=== PATIENT | male | born 1965 | race Caucasian/White ===

== ENCOUNTER 2020-03-01 16:11 | Emergency (ER) | payer OTHER ==
[2020-03-01 16:24] LABS: Mean Cell Volume 83.8 fl (78-100); Mean Corpuscular Hemoglobin 28.6 pg (26-32); Mean Corpuscular Hgb Concent. 34.1 g/dl (32-36); Mean Platelet Volume 10.6 fl (7.5-11.0); Platelet Count 207 K/mm3 (150-450); Red Blood Count 5.25 M/mm3 (4.1-5.6); Red Cell Distribution Width 12.9 % (11.5-14.0)
[2020-03-01 16:39] LABS: ALBUMIN 4.3 g/dL (3.5-5.0); ALKALINE PHOSPHATASE 102 U/L (38-126); BLOOD UREA NITROGEN 14 mg/dL (9-20); CHLORIDE 97 mmol/L (98-107); Calcium 8.8 mg/dL (8.4-10.2); Carbon Dioxide 28 mmol/L (22-30); Creatinine 1 1.11 mg/dL (0.66-1.25); Glucose 259 mg/dL (74-106); Potassium 4.2 mmol/L (3.5-5.1); SGOT/AST 23 U/L (17-59); SGPT/ALT 29 U/L (0-50); SODIUM 138 mmol/L (137-145); Total Protein 7.4 g/dL (6.3-8.2)
[2020-03-01] MEDS ORDERED: Sodium Chloride 0.9% 1000 ML 1,000 ML IV STA (16:44)
[2020-03-01] MEDS ORDERED: BABY ASPIRIN 81 MG CHEW PO ONE (16:44)
[2020-03-01] MEDS ORDERED: BABY ASPIRIN 81 MG CHEW ONE (16:47)
[2020-03-01] MEDS ORDERED: Sodium Chloride 0.9% 1000 ML 1,000 ML ONE (16:47)
--- NOTE | 2020-03-01 16:55 | ERPHSYRPT ---
- History of Present Illness Time Seen by Provider: 03/01/20 16:15 Source: patient Exam Limitations: no limitations Patient Subjective Stated Complaint: pt reports he mistakingly took two doses of his long-acting insulin today. pt reports taking 20 units of Basaglar at 0530 and then again at 1430 today. pt reports it was not intentional and he forgot he had administered the previous dose. pt states he realized approx 1500 what he had done and started to feel "weird". states he called his PCP and was advised to present to ED for evaluation. Triage Nursing Assessment: pt is aox3, ambulatory to trt room with no difficulties, pt speech is clear, appropriate, pupils perrl, afebrile, resps easy and non labored, cap refill < 3 seconds, pt skin pink warm dry. Physician History: Patient is here with accidental insulin overdose. Patient states that he took his morning insulin at about 5:30 AM. This is 24-hour long-acting insulin, Basaglar. Patient states he then fell back asleep. He slept until approximately 2:30 PM. At which point time he mistakenly repeated his Basaglar dose. He states that he is asymptomatic outside of feeling "weird". He has no current chest pain, shortness of breath, nausea, vomiting, fever, chills. He denies any falls, trauma, dizziness, weakness. He cannot further articulate his feelings of "weird". Timing/Duration: today Severity: moderate Modifying Factors: Improves With: medication Associated Symptoms: denies symptoms Allergies/Adverse Reactions: No Known Drug Allergies Allergy (Verified 03/01/20 16:35) Home Medications: Amlodipine Besylate 10 mg PO DAILY 03/01/20 [History] Aspirin EC 81 mg [Ecotrin 81 mg] 81 mg PO DAILY 03/01/20 [History] Escitalopram Oxalate [Lexapro] 20 mg PO DAILY 03/01/20 [History] Ezetimibe 10 mg [Zetia 10 MG] 10 mg PO DAILY 03/01/20 [History] Hydralazine HCl 50 mg PO BID 03/01/20 [History] Insulin Glargine,Hum.rec.anlog [Basaglar Kwikpen U-100] 20 unit SQ DAILY 03/01/20 [History] Omeprazole 40 mg PO DAILY 03/01/20 [History] PARoxetine HCL [Paroxetine HCl] 10 mg PO DAILY 03/01/20 [History] Pravastatin Sodium 80 mg PO DAILY 03/01/20 [History] Sitagliptin Phosphate [Januvia] 100 mg PO DAILY 03/01/20 [History] Zolpidem Tartrate [Zolpidem Tartrate ER] 12.5 mg PO HS 03/01/20 [History] Hx Tetanus, Diphtheria Vaccination/Date Given: Yes Hx Influenza Vaccination/Date Given: Yes Hx Pneumococcal Vaccination/Date Given: No Immunizations Up to Date: Yes Travel Risk - International Travel Have you traveled outside of the country in past 3 weeks: No - Coronavirus Screening Are you exhibiting any of the following symptoms?: No Close contact with a COVID-19 positive Pt in past 14-21 Days: No - Review of Systems Constitutional: No Fever, No Chills Eyes: No Symptoms Ears, Nose, & Throat: No Symptoms Respiratory: No Cough, No Dyspnea Cardiac: No Chest Pain, No Edema, No Syncope Abdominal/Gastrointestinal: No Abdominal Pain, No Nausea, No Vomiting, No Diarrhea Genitourinary Symptoms: No Dysuria Musculoskeletal: No Back Pain, No Neck Pain Skin: No Rash Neurological: No Dizziness, No Focal Weakness, No Sensory Changes Psychological: No Symptoms Endocrine: No Symptoms All Other Systems: Reviewed and Negative - Past Medical History Pertinent Past Medical History: Yes Neurological History: No Pertinent History ENT History: No Pertinent History Cardiac History: Hypertension Respiratory History: Asthma Endocrine Medical History: Diabetes Type II GI Medical History: No Pertinent History History: No Pertinent History Other Medical History: CELLULITIS L LEG - Past Surgical History Past Surgical History: Yes Neuro Surgical History: No Pertinent History Cardiac: No Pertinent History Respiratory: No Pertinent History Gastrointestinal: No Pertinent History Genitourinary: No Pertinent History Musculoskeletal: Joint Replacement Other Surgical History: LEFT HIP - Social History Smoking Status: Former smoker Exposure to second hand smoke: No Drug Use: none Patient Lives Alone: No - Nursing Vital Signs Nursing Vital Signs: Initial Vital Signs Temperature 98.2 F 03/01/20 16:13 Pulse Rate 50 L 03/01/20 16:13 Respiratory Rate 03/01/20 16:13 Blood Pressure 151/91 03/01/20 16:13 O2 Sat by Pulse Oximetry 97 03/01/20 16:13 Pain Scale Pain Intensity 0 - Physical Exam General Appearance: no apparent distress, alert Eye Exam: PERRL/EOMI, eyes nml inspection Ears, Nose, Throat Exam: normal ENT inspection, TMs normal, pharynx normal, moist mucous membranes Neck Exam: normal inspection, non-tender, supple, full range of motion Respiratory Exam: normal breath sounds, lungs clear, No respiratory distress Cardiovascular Exam: regular rate/rhythm, normal heart sounds, normal peripheral pulses Gastrointestinal/Abdomen Exam: soft, normal bowel sounds, No tenderness, No mass Back Exam: normal inspection, normal range of motion, No CVA tenderness, No vertebral tenderness Extremity Exam: normal inspection, normal range of motion, pelvis stable Neurologic Exam: alert, oriented x 3, cooperative, normal mood/affect, nml cerebellar function, nml station & gait, sensation nml, No motor deficits Skin Exam: normal color, warm, dry, No rash Lymphatic Exam: No adenopathy SpO2: 97 - Course Nursing assessment & vital signs reviewed: Yes EKG Interpreted by Me: RATE, Sinus Rhythm Ordered Tests: Active Orders 24 hr Category Date Time Status EKG-ER Only STAT Care 03/01/20 16:15 Active IV Insertion STAT Care 03/01/20 16:15 Active CBC W DIFF Stat Lab 03/01/20 16:15 Completed CMP Stat Lab 03/01/20 16:15 Completed Glucose Stat Lab 03/01/20 18:15 Completed Manual Differential NC Stat Lab 03/01/20 16:15 Completed Medication Summary Discontinued Medications Generic Name Dose Route Start Last Admin Trade Name Freq PRN Reason Stop Dose Admin Aspirin 324 mg 03/01/20 16:44 03/01/20 16:48 Baby Aspirin 81 Mg Chew PO 03/01/20 16:45 324 mg STAT ONE Administration Aspirin Confirm 03/01/20 16:47 Baby Aspirin 81 Mg Chew Administered 03/01/20 16:48 Dose 324 mg .ROUTE .STK-MED ONE Sodium Chloride 1,000 mls @ 999 mls/hr 03/01/20 16:44 03/01/20 18:03 Sodium Chloride 0.9% 1000 Ml IV 03/01/20 17:44 Infused .Q1H1M STA Infusion Sodium Chloride Confirm 03/01/20 16:47 Sodium Chloride 0.9% 1000 Ml Administered 03/01/20 16:48 Dose 1,000 mls @ ud .ROUTE .STK-MED ONE Lab/Rad Data: Laboratory Result Diagrams 03/01/20 16:15 03/01/20 16:15 Laboratory Results 03/01/20 03/01/20 03/01/20 Range/Units 18:15 16:15 16:15 WBC 7.0 (4.0-10.5) K/mm3 RBC 5.25 (4.1-5.6) M/mm3 Hgb 15.0 (12.5-18.0) gm/dl Hct 44.0 (42-50) % MCV 83.8 (78-100) fl MCH 28.6 (26-32) pg MCHC 34.1 (32-36) g/dl RDW 12.9 (11.5-14.0) % Plt Count 207 (150-450) K/mm3 MPV 10.6 (7.5-11.0) fl Sodium 138 (137-145) mmol/L Potassium 4.2 (3.5-5.1) mmol/L Chloride 97 L (98-107) mmol/L Carbon Dioxide 28 (22-30) mmol/L Anion Gap 17.0 H (5-15) MEQ/L BUN 14 (9-20) mg/dL Creatinine 1.11 (0.66-1.25) mg/dL Estimated GFR > 60.0 ML/MIN Glucose 209 H 259 H (74-106) mg/dL Calcium 8.8 (8.4-10.2) mg/dL Total Bilirubin 1.30 (0.2-1.3) mg/dL AST 23 (17-59) U/L ALT 29 (0-50) U/L Alkaline Phosphatase 102 (38-126) U/L Serum Total Protein 7.4 (6.3-8.2) g/dL Albumin 4.3 (3.5-5.0) g/dL - Progress Progress: improved Progress Note: 03/01/20 16:54 We will obtain basic labs, fluids, EKG. EKG- No STEMI blood glucose is 259 Observe and repeat glucose check 03/01/20 18:33 Patient feeling improved. He was observed for 2 hours. Able to eat and drink without difficulty. Repeat glucose was 209. I do believe he is safe to go home at this point time. Although, the half-life of his insulin medication is 24 hours. Encouraged him to continue to eat and drink, closely monitor home blood glucose. He will need to return here for any new or changing symptoms. Patient states he will have somebody stay at his house with him tonight. Counseled pt/family regarding: lab results, diagnosis, need for follow-up - Departure Departure Disposition: Home Clinical Impression: Overdose of insulin Condition: Stable Critical Care Time: No Referrals: CHEPE AZEVEDO [Primary Care Provider] -
[2020-03-01 18:03] VITALS: BP 144/86; PULSE 67
[2020-03-01 18:34] VITALS: O2SAT 97
[2020-03-01 20:51] LABS: Basophil 2 % (0.0-1.0); Lymphocytes 22 % (24-44); Monocyte 5 % (0.0-12.0); Neutrophils 71 % (36.-66.); Platelet Estimate NORMAL (NORMAL); Total Cells Counted 100
== END 2020-03-01 18:44 | disposition home or self-care (01) ==
LOC: ED 16:11
DX: T38.3X1A Poisoning by insulin and oral hypoglycemic [antidiabetic] drugs, accidental (unintentional), initial encounter (principal); Z79.899 Other long term (current) drug therapy; I10 Essential (primary) hypertension; E11.9 Type 2 diabetes mellitus without complications
CPT/HCPCS: 36000; 36415; 80053; 82947; 82962; 85025; 93005; 96360; 99284; A9270-GY

== ENCOUNTER 2021-11-14 16:58 | Emergency (ER) | payer OTHER ==
[2021-11-14] MEDS ORDERED: Sodium Chloride 0.9% 1000 ML 1,000 ML IV STA ×2 (17:03→21:01)
--- NOTE | 2021-11-14 18:11 | ERPHSYRPT ---
- History of Present Illness Source: family, EMS Exam Limitations: clinical condition Patient Subjective Stated Complaint: Weakness Triage Nursing Assessment: Patient brought into ED via EMS and transferred to bed with assist of 4. Patient Alert to self only. EMS reports patient's son called 911 due to checking on his dad and noted he has been in his recliner for 2 days and he didn't believe he had gotten up. Patient noted to have saturated brief on with urine and stool. Patient has dried mucus in walters. Patient denies pain or discomfort. Patient very poor hisorian. Timing/Duration: other (Uncertain how long he has been in an altered mental state and how long he sat in the chair.) Severity: severe Hx Tetanus, Diphtheria Vaccination/Date Given: Yes Hx Influenza Vaccination/Date Given: (unknown) Hx Pneumococcal Vaccination/Date Given: No <ANGELLA PRESCOTT - Last Filed: 11/14/21 18:48> <ALBERTO BLANCHARD - Last Filed: 11/14/21 21:03> - History of Present Illness Time Seen by Provider: 11/14/21 17:45 Physician History: Patient is a 56-year-old male who according to his family is normally active and drives who was last seen Wednesday by his son today when he returned to the area and went to check on his father he found him sitting in a chair for an obvious period of time with soiling himself and urine output he seemed to have some general weakness and some muscle tremors. He does have a history of a CVA and he has had with this episode some difficulty speaking and confusion. Patient is unaware unable otherwise to give history. (ANGELLA PRESCOTT) Allergies/Adverse Reactions: No Known Drug Allergies Allergy (Verified 03/01/20 16:35) Home Medications: Amlodipine Besylate 10 mg PO DAILY 03/01/20 [History] Aspirin EC 81 mg [Ecotrin 81 mg] 81 mg PO DAILY 03/01/20 [History] Escitalopram Oxalate [Lexapro] 20 mg PO DAILY 03/01/20 [History] Ezetimibe 10 mg [Zetia 10 MG] 10 mg PO DAILY 03/01/20 [History] Hydralazine HCl 50 mg PO BID 03/01/20 [History] Insulin Glargine,Hum.rec.anlog [Basaglar Kwikpen U-100] 20 unit SQ DAILY 03/01/20 [History] Omeprazole 40 mg PO DAILY 03/01/20 [History] PARoxetine HCL [Paroxetine HCl] 10 mg PO DAILY 03/01/20 [History] Pravastatin Sodium 80 mg PO DAILY 03/01/20 [History] Sitagliptin Phosphate [Januvia] 100 mg PO DAILY 03/01/20 [History] Zolpidem Tartrate [Zolpidem Tartrate ER] 12.5 mg PO HS 03/01/20 [History] Travel Risk - International Travel Have you traveled outside of the country in past 3 weeks: No - Coronavirus Screening Are you exhibiting any of the following symptoms?: No Close contact with a COVID-19 positive Pt in past 14-21 Days: No - Vaccine Status Have you recieved a Covid-19 vaccination: No Dyer Assistant: Unknown - Vaccination Dates Dates if Unknown: unknown <ANGELLA PRESCOTT - Last Filed: 11/14/21 18:48> - Review of Systems All Other Systems: Unable due to condition <ANGELLA PRESCOTT - Last Filed: 11/14/21 18:48> - Past Medical History Pertinent Past Medical History: Yes Neurological History: No Pertinent History ENT History: No Pertinent History Cardiac History: Hypertension Respiratory History: Asthma Endocrine Medical History: Diabetes Type II GI Medical History: No Pertinent History History: No Pertinent History Other Medical History: CELLULITIS L LEG. Poor historian - Past Surgical History Past Surgical History: Yes Neuro Surgical History: No Pertinent History Cardiac: No Pertinent History Respiratory: No Pertinent History Gastrointestinal: No Pertinent History Genitourinary: No Pertinent History Musculoskeletal: Joint Replacement Other Surgical History: LEFT HIP. Poor historian - Social History Smoking Status: Former smoker Exposure to second hand smoke: No Drug Use: none Patient Lives Alone: Yes <ANGELLA PRESCOTT - Last Filed: 11/14/21 18:48> - Physical Exam General Appearance: obese, other (Unkempt soiled depends) Eye Exam: PERRL/EOMI, other (Does not seem to track appropriately) Ears, Nose, Throat Exam: normal ENT inspection Neck Exam: normal inspection, non-tender Respiratory Exam: normal breath sounds, lungs clear, No respiratory distress Cardiovascular Exam: regular rate/rhythm, normal heart sounds Gastrointestinal/Abdomen Exam: tenderness, distention Male Genitalia Exam: normal genitalia Back Exam: normal inspection, decreased range of motion Extremity Exam: limited range of motion, other (Tremors) Neurologic Exam: alert, disoriented, confusion Skin Exam: warm, dry SpO2 Interpretation: hypoxic, O2 applied (3 L applied) SpO2: 93 O2 Delivery: Nasal Cannula <ANGELLA PRESCOTT - Last Filed: 11/14/21 18:48> - Nursing Vital Signs Nursing Vital Signs: Initial Vital Signs Temperature 98.2 F 11/14/21 17:40 Pulse Rate 87 11/14/21 17:40 Respiratory Rate 19 11/14/21 17:40 Blood Pressure 106/65 11/14/21 17:40 O2 Sat by Pulse Oximetry 93 L 11/14/21 17:40 Pain Scale Pain Intensity 0 - Course Nursing assessment & vital signs reviewed: Yes EKG Interpreted by Me: RATE (87), Sinus Rhythm, Left Bundle Branch Block, Non- specific ST Changes, Other (Tall peaked T waves consistent with hyperkalemia) - Radiology Exams Chest X-ray Interpretation: Interpreted by me (Negative except small volumes) - CT Exams Head CT Interpretation: Tele-radiologist Report (No acute ischemic lesions are noted) <BONGANGELLA DONALD - Last Filed: 11/14/21 18:48> Ordered Tests: Active Orders 24 hr Category Date Time Status [place] Drill Operator STAT Care 11/14/21 17:01 Active EKG-ER Only STAT Care 11/14/21 17:00 Active Hawkins [Catheter-Nemaha Hawkins] STAT Care 11/14/21 17:13 Active IV Insertion STAT Care 11/14/21 17:00 Active NPO (ED) STAT Care 11/14/21 17:00 Active CHEST 1 VIEW (PORTABLE) Stat Exams 11/14/21 17:01 Completed HEAD WITHOUT CONTRAST [CT] Stat Exams 11/14/21 17:01 Completed ABG [ARTERIAL BLOOD GASES] Stat Lab 11/14/21 20:46 Completed AMYLASE Stat Lab 11/14/21 18:00 Completed BLOOD CULTURE Stat Lab 11/14/21 18:05 Received CBC W DIFF Stat Lab 11/14/21 18:00 Completed CK-Creatinine Phosphokinase Stat Lab 11/14/21 18:00 Completed CMP Stat Lab 11/14/21 17:20 Completed CULTURE,URINE Stat Lab 11/14/21 17:13 Ordered D-DIMER QUANTITATIVE Stat Lab 11/14/21 18:00 Completed ETHYL ALCOHOL Stat Lab 11/14/21 18:00 Completed Glucose Stat Lab 11/14/21 18:00 Completed LIPASE Stat Lab 11/14/21 18:00 Completed Lactic Acid Stat Lab 11/14/21 17:03 Completed MAGNESIUM Stat Lab 11/14/21 18:00 Completed Manual Differential NC Stat Lab 11/14/21 18:00 Completed NT PRO BNP Stat Lab 11/14/21 18:00 Completed PTT Stat Lab 11/14/21 18:00 Completed TROPONIN Q3H Lab 11/14/21 18:00 Completed TROPONIN Q3H Lab 11/14/21 20:15 Ordered TROPONIN Q3H Lab 11/14/21 23:15 Ordered TROPONIN Q3H Lab 11/15/21 02:15 Ordered TROPONIN Q3H Lab 11/15/21 05:15 Ordered UA W/RFX UR CULTURE Stat Lab 11/14/21 17:13 Completed Urine Triage Profile Stat Lab 11/14/21 17:13 Completed Medication Summary Discontinued Medications Generic Name Dose Route Start Last Admin Trade Name Freq PRN Reason Stop Dose Admin Calcium Gluconate 1,000 mg 11/14/21 18:36 11/14/21 19:03 Calcium Gluconate 1000 Mg/10 Ml Vial IV 11/14/21 18:37 1,000 mg STAT ONE Administration Calcium Gluconate Confirm 11/14/21 18:57 Calcium Gluconate 1000 Mg/10 Ml Vial Administered 11/14/21 18:58 Dose 1,000 mg IV .STK-MED ONE Dextrose 50 ml 11/14/21 18:36 11/14/21 19:03 Dextrose 50%-Water 50 Ml Abboject IV 11/14/21 18:37 50 ml STAT ONE Administration Dextrose Confirm 11/14/21 18:59 Dextrose 50%-Water 50 Ml Abboject Administered 11/14/21 19:00 Dose 50 ml IV .STK-MED ONE Sodium Chloride 1,000 mls @ 999 mls/hr 11/14/21 17:03 11/14/21 18:38 Sodium Chloride 0.9% 1000 Ml IV 11/14/21 18:03 999 mls/hr .Q1H1M STA Administration Sodium Chloride Confirm 11/14/21 18:37 Sodium Chloride 0.9% 1000 Ml Administered 11/14/21 18:38 Dose 1,000 mls @ ud .ROUTE .STK-MED ONE Sodium Chloride Confirm 11/14/21 20:52 Sodium Chloride 0.9% 1000 Ml Administered 11/14/21 20:53 Dose 1,000 mls @ ud .ROUTE .STK-MED ONE Insulin Human Regular 10 unit 11/14/21 18:36 11/14/21 19:01 Insulin Regular, Human 1 Unit IV 11/14/21 18:37 10 unit STAT ONE Administration Insulin Human Regular Confirm 11/14/21 18:59 Insulin Regular, Human 1 Unit Administered 11/14/21 19:00 Dose 10 unit .ROUTE .STK-MED ONE Patiromer Confirm 11/14/21 20:50 Patiromer Calcium Sorbitex 8.4 Gm Powd.Pack Administered 11/14/21 20:51 Dose 8.4 gm PO .STK-MED ONE Patiromer 8.4 gm 11/14/21 20:53 Patiromer Calcium Sorbitex 8.4 Gm Powd.Pack PO 11/14/21 20:54 STAT STA Sodium Bicarbonate 50 meq 11/14/21 18:36 11/14/21 19:03 Sodium Bicarbonate 1 Meq/Ml 50ml Syringe IV 11/14/21 18:37 50 meq STAT ONE Administration Sodium Bicarbonate Confirm 11/14/21 18:59 Sodium Bicarbonate 1 Meq/Ml 50ml Syringe Administered 11/14/21 19:00 Dose 50 meq IV .STK-MED ONE Lab/Rad Data: Laboratory Result Diagrams 11/14/21 18:00 11/14/21 17:20 Laboratory Results 11/14/21 11/14/21 11/14/21 Range/Units 20:46 18:40 18:00 WBC (4.0-10.5) K/mm3 RBC (4.1-5.6) M/mm3 Hgb (12.5-18.0) gm/dl Hct (42-50) % MCV (78-100) fl MCH (26-32) pg MCHC (32-36) g/dl RDW (11.5-14.0) % Plt Count (150-450) K/mm3 MPV (7.5-11.0) fl Segmented Neutrophils (36.-66.) % Band Neutrophils (0.0-2.0) % Lymphocytes (Manual) (24-44) % Monocytes (Manual) (0.0-12.0) % Platelet Estimate (NORMAL) RBC Morphology Microcytosis APTT (25.1-36.5) SECONDS D-Dimer (215-500) ng/mL Puncture Site LEFT BRACHIAL pCO2 19 L* (35-45) mmHg pO2 137 H* (75-100) mmHg Base Excess -22.9 L (-2.0-2.0) O2 Saturation 97.9 (94-100) g/dF ABG pH 7.07 L* (7.35-7.45) ABG HCO3 5.5 L* (22-28) ABG O2 Sat (Measured) 98.6 (95-100) % Wing Test NOT APPLICABLE A-a Gradient 67 a/A Ratio 0.67 Hemoglobin 9.2 Carboxyhemoglobin 0.5 (0.0-6.9) % THgb Methemoglobin 0.2 L (1.4-1.5) % Temperature 37.0 C POC O2 Flow Rate 32 % Sodium (137-145) mmol/L Potassium 6.3 H* (3.5-5.1) mmol/L Chloride (98-107) mmol/L Carbon Dioxide (22-30) mmol/L BUN (9-20) mg/dL Creatinine (0.66-1.25) mg/dL Estimated GFR ML/MIN Glucose (74-106) mg/dL Lactic Acid (0.4-2.0) Calcium (8.4-10.2) mg/dL Magnesium (1.6-2.3) mg/dL Total Bilirubin (0.2-1.3) mg/dL AST (17-59) U/L ALT (0-50) U/L Alkaline Phosphatase (38-126) U/L Ammonia < 9 L (9-30) umol/L Creatine Kinase (55-170) U/L Troponin I 0.040 H* (0.000-0.034) ng/mL NT-Pro-B Natriuret Pep (0-900) pg/mL Serum Total Protein (6.3-8.2) g/dL Albumin (3.5-5.0) g/dL Amylase (30-110) U/L Lipase (23-300) U/L Urine Color (YELLOW) Urine Appearance (CLEAR) Urine pH (5-6) Ur Specific Recluse (1.005-1.025) Urine Protein (Negative) Urine Ketones (NEGATIVE) Urine Blood (0-5) Dereck/ul Urine Nitrite (NEGATIVE) Urine Bilirubin (NEGATIVE) Urine Urobilinogen (0-1) mg/dL Ur Leukocyte Esterase (NEGATIVE) Urine WBC (Auto) (0-5) /HPF Urine RBC (Auto) (0-2) /HPF U Epithel Cells (Auto) (FEW) /HPF Urine Bacteria (Auto) (NEGATIVE) /HPF Urine Sperm (Auto) (NEGATIVE) /HPF Urine Culture Reflexed (NO) Urine Glucose (NEGATIVE) mg/dL Urine Opiates Level (NEGATIVE) Ur Methadone (NEGATIVE) Urine Barbiturates (NEGATIVE) Ur Phencyclidine (PCP) (NEGATIVE) Urine Amphetamine (NEGATIVE) U Benzodiazepine Level (NEGATIVE) Urine Cocaine (NEGATIVE) Urine Marijuana (THC) (NEGATIVE) Ethyl Alcohol (0-10) mg/dL 11/14/21 11/14/21 11/14/21 Range/Units 18:00 18:00 18:00 WBC (4.0-10.5) K/mm3 RBC (4.1-5.6) M/mm3 Hgb (12.5-18.0) gm/dl Hct (42-50) % MCV (78-100) fl MCH (26-32) pg MCHC (32-36) g/dl RDW (11.5-14.0) % Plt Count (150-450) K/mm3 MPV (7.5-11.0) fl Segmented Neutrophils (36.-66.) % Band Neutrophils (0.0-2.0) % Lymphocytes (Manual) (24-44) % Monocytes (Manual) (0.0-12.0) % Platelet Estimate (NORMAL) RBC Morphology Microcytosis APTT 37.5 H (25.1-36.5) SECONDS D-Dimer 4116 H* (215-500) ng/mL Puncture Site pCO2 (35-45) mmHg pO2 (75-100) mmHg Base Excess (-2.0-2.0) O2 Saturation (94-100) g/dF ABG pH (7.35-7.45) ABG HCO3 (22-28) ABG O2 Sat (Measured) (95-100) % Wing Test A-a Gradient a/A Ratio Hemoglobin Carboxyhemoglobin (0.0-6.9) % THgb Methemoglobin (1.4-1.5) % Temperature C POC O2 Flow Rate % Sodium (137-145) mmol/L Potassium (3.5-5.1) mmol/L Chloride (98-107) mmol/L Carbon Dioxide (22-30) mmol/L BUN (9-20) mg/dL Creatinine (0.66-1.25) mg/dL Estimated GFR ML/MIN Glucose 106 (74-106) mg/dL Lactic Acid (0.4-2.0) Calcium (8.4-10.2) mg/dL Magnesium 1.6 (1.6-2.3) mg/dL Total Bilirubin (0.2-1.3) mg/dL AST (17-59) U/L ALT (0-50) U/L Alkaline Phosphatase (38-126) U/L Ammonia (9-30) umol/L Creatine Kinase 1103 H (55-170) U/L Troponin I (0.000-0.034) ng/mL NT-Pro-B Natriuret Pep 248 (0-900) pg/mL Serum Total Protein (6.3-8.2) g/dL Albumin (3.5-5.0) g/dL Amylase 317 H (30-110) U/L Lipase 2922 H (23-300) U/L Urine Color (YELLOW) Urine Appearance (CLEAR) Urine pH (5-6) Ur Specific Recluse (1.005-1.025) Urine Protein (Negative) Urine Ketones (NEGATIVE) Urine Blood (0-5) Dereck/ul Urine Nitrite (NEGATIVE) Urine Bilirubin (NEGATIVE) Urine Urobilinogen (0-1) mg/dL Ur Leukocyte Esterase (NEGATIVE) Urine WBC (Auto) (0-5) /HPF Urine RBC (Auto) (0-2) /HPF U Epithel Cells (Auto) (FEW) /HPF Urine Bacteria (Auto) (NEGATIVE) /HPF Urine Sperm (Auto) (NEGATIVE) /HPF Urine Culture Reflexed (NO) Urine Glucose (NEGATIVE) mg/dL Urine Opiates Level (NEGATIVE) Ur Methadone (NEGATIVE) Urine Barbiturates (NEGATIVE) Ur Phencyclidine (PCP) (NEGATIVE) Urine Amphetamine (NEGATIVE) U Benzodiazepine Level (NEGATIVE) Urine Cocaine (NEGATIVE) Urine Marijuana (THC) (NEGATIVE) Ethyl Alcohol < 10 (0-10) mg/dL 11/14/21 11/14/21 11/14/21 Range/Units 18:00 17:20 17:13 WBC 14.0 H (4.0-10.5) K/mm3 RBC 3.35 L (4.1-5.6) M/mm3 Hgb 9.7 L (12.5-18.0) gm/dl Hct 30.1 L (42-50) % MCV 89.9 (78-100) fl MCH 29.0 (26-32) pg MCHC 32.2 (32-36) g/dl RDW 14.9 H (11.5-14.0) % Plt Count 261 (150-450) K/mm3 MPV 10.8 (7.5-11.0) fl Segmented Neutrophils 88 H (36.-66.) % Band Neutrophils 1 (0.0-2.0) % Lymphocytes (Manual) 6 L (24-44) % Monocytes (Manual) 5 (0.0-12.0) % Platelet Estimate NORMAL (NORMAL) RBC Morphology ABNORMAL Microcytosis 1+ APTT (25.1-36.5) SECONDS D-Dimer (215-500) ng/mL Puncture Site pCO2 (35-45) mmHg pO2 (75-100) mmHg Base Excess (-2.0-2.0) O2 Saturation (94-100) g/dF ABG pH (7.35-7.45) ABG HCO3 (22-28) ABG O2 Sat (Measured) (95-100) % Wing Test A-a Gradient a/A Ratio Hemoglobin Carboxyhemoglobin (0.0-6.9) % THgb Methemoglobin (1.4-1.5) % Temperature C POC O2 Flow Rate % Sodium 142 (137-145) mmol/L Potassium 8.1 H* (3.5-5.1) mmol/L Chloride 111 H (98-107) mmol/L Carbon Dioxide < 5 L* (22-30) mmol/L BUN 273 H (9-20) mg/dL Creatinine 28.40 H (0.66-1.25) mg/dL Estimated GFR 1.7 ML/MIN Glucose 105 (74-106) mg/dL Lactic Acid (0.4-2.0) Calcium 7.4 L (8.4-10.2) mg/dL Magnesium (1.6-2.3) mg/dL Total Bilirubin 0.50 (0.2-1.3) mg/dL AST 35 (17-59) U/L ALT 19 (0-50) U/L Alkaline Phosphatase 112 (38-126) U/L Ammonia (9-30) umol/L Creatine Kinase (55-170) U/L Troponin I (0.000-0.034) ng/mL NT-Pro-B Natriuret Pep (0-900) pg/mL Serum Total Protein 6.3 (6.3-8.2) g/dL Albumin 3.7 (3.5-5.0) g/dL Amylase (30-110) U/L Lipase (23-300) U/L Urine Color (YELLOW) Urine Appearance (CLEAR) Urine pH (5-6) Ur Specific Recluse (1.005-1.025) Urine Protein (Negative) Urine Ketones (NEGATIVE) Urine Blood (0-5) Dereck/ul Urine Nitrite (NEGATIVE) Urine Bilirubin (NEGATIVE) Urine Urobilinogen (0-1) mg/dL Ur Leukocyte Esterase (NEGATIVE) Urine WBC (Auto) (0-5) /HPF Urine RBC (Auto) (0-2) /HPF U Epithel Cells (Auto) (FEW) /HPF Urine Bacteria (Auto) (NEGATIVE) /HPF Urine Sperm (Auto) (NEGATIVE) /HPF Urine Culture Reflexed (NO) Urine Glucose (NEGATIVE) mg/dL Urine Opiates Level NEGATIVE (NEGATIVE) Ur Methadone NEGATIVE (NEGATIVE) Urine Barbiturates NEGATIVE (NEGATIVE) Ur Phencyclidine (PCP) NEGATIVE (NEGATIVE) Urine Amphetamine NEGATIVE (NEGATIVE) U Benzodiazepine Level NEGATIVE (NEGATIVE) Urine Cocaine NEGATIVE (NEGATIVE) Urine Marijuana (THC) NEGATIVE (NEGATIVE) Ethyl Alcohol (0-10) mg/dL 11/14/21 11/14/21 Range/Units 17:13 17:03 WBC (4.0-10.5) K/mm3 RBC (4.1-5.6) M/mm3 Hgb (12.5-18.0) gm/dl Hct (42-50) % MCV (78-100) fl MCH (26-32) pg MCHC (32-36) g/dl RDW (11.5-14.0) % Plt Count (150-450) K/mm3 MPV (7.5-11.0) fl Segmented Neutrophils (36.-66.) % Band Neutrophils (0.0-2.0) % Lymphocytes (Manual) (24-44) % Monocytes (Manual) (0.0-12.0) % Platelet Estimate (NORMAL) RBC Morphology Microcytosis APTT (25.1-36.5) SECONDS D-Dimer (215-500) ng/mL Puncture Site pCO2 (35-45) mmHg pO2 (75-100) mmHg Base Excess (-2.0-2.0) O2 Saturation (94-100) g/dF ABG pH (7.35-7.45) ABG HCO3 (22-28) ABG O2 Sat (Measured) (95-100) % Wing Test A-a Gradient a/A Ratio Hemoglobin Carboxyhemoglobin (0.0-6.9) % THgb Methemoglobin (1.4-1.5) % Temperature C POC O2 Flow Rate % Sodium (137-145) mmol/L Potassium (3.5-5.1) mmol/L Chloride (98-107) mmol/L Carbon Dioxide (22-30) mmol/L BUN (9-20) mg/dL Creatinine (0.66-1.25) mg/dL Estimated GFR ML/MIN Glucose (74-106) mg/dL Lactic Acid 0.4 (0.4-2.0) Calcium (8.4-10.2) mg/dL Magnesium (1.6-2.3) mg/dL Total Bilirubin (0.2-1.3) mg/dL AST (17-59) U/L ALT (0-50) U/L Alkaline Phosphatase (38-126) U/L Ammonia (9-30) umol/L Creatine Kinase (55-170) U/L Troponin I (0.000-0.034) ng/mL NT-Pro-B Natriuret Pep (0-900) pg/mL Serum Total Protein (6.3-8.2) g/dL Albumin (3.5-5.0) g/dL Amylase (30-110) U/L Lipase (23-300) U/L Urine Color YELLOW (YELLOW) Urine Appearance CLEAR (CLEAR) Urine pH 5.0 (5-6) Ur Specific Recluse 1.010 (1.005-1.025) Urine Protein NEGATIVE (Negative) Urine Ketones NEGATIVE (NEGATIVE) Urine Blood NEGATIVE (0-5) Dereck/ul Urine Nitrite NEGATIVE (NEGATIVE) Urine Bilirubin NEGATIVE (NEGATIVE) Urine Urobilinogen NEGATIVE (0-1) mg/dL Ur Leukocyte Esterase NEGATIVE (NEGATIVE) Urine WBC (Auto) 0-2 (0-5) /HPF Urine RBC (Auto) 0-2 (0-2) /HPF U Epithel Cells (Auto) NONE (FEW) /HPF Urine Bacteria (Auto) NONE SEEN (NEGATIVE) /HPF Urine Sperm (Auto) PRESENT (NEGATIVE) /HPF Urine Culture Reflexed NO (NO) Urine Glucose 150 (NEGATIVE) mg/dL Urine Opiates Level (NEGATIVE) Ur Methadone (NEGATIVE) Urine Barbiturates (NEGATIVE) Ur Phencyclidine (PCP) (NEGATIVE) Urine Amphetamine (NEGATIVE) U Benzodiazepine Level (NEGATIVE) Urine Cocaine (NEGATIVE) Urine Marijuana (THC) (NEGATIVE) Ethyl Alcohol (0-10) mg/dL - Progress Progress: unchanged Will see patient in: hospital (full admit) <ANGELLA PRESCOTT - Last Filed: 11/14/21 18:48> - Progress Discussed with Dr.: Other Will see patient in: ED Counseled pt/family regarding: lab results, diagnosis, need for follow-up, rad results <ALBERTO BLANCHARD - Last Filed: 11/14/21 21:03> - Progress Progress Note: 11/14/21 20:56 Patient is checked out to me at shift change from Dr. Prescott with pending work- up. Patient presented with altered mental status. CT head is negative for any acute findings. Patient is awake and alert but not fully oriented on my evaluation. Not in any distress. Work-up showed white count of 14 and chemistries with acute renal failure creatinine of 28.4 and BUN of 273 with elevated CK level in the 1100s, and potassium of 8.1. He is given hyperkalemia acute treatment with calcium/bicarb/dextrose/insulin/albuterol and Velt[place]. Also has elevated lipase and amylase and mildly elevated troponin without any acute ST elevations. Is given another bolus of fluid and bicarb as he has a bicarb of less than 5 on chemistries. I believe patient needs emergent dialysi s. Has elevated D-dimer but cannot obtain CTA. Discussed with Dr. Baez who recommended continuous albuterol nebs and patient is accepted for transfer at [facility]. (ALBERTO BLANCHARD) - Departure Departure Disposition: In-patient Admission Critical Care Time: Yes Critical Care Time(excluding separately billable procedures): Critical 30-74 mins (50) <ANGELLA PRESCOTT - Last Filed: 11/14/21 18:48> - Departure Departure Disposition: Transfer <ALBERTO BLANCHARD - Last Filed: 11/14/21 21:03> - Departure Clinical Impression: Hyperkalemia, Rhabdomyolysis, Elevated d-dimer, Elevated troponin, Elevated lipase, Anemia, Acute renal failure, Metabolic acidosis Condition: Critical Referrals: CHEPE AZEVEDO MD [Primary Care Provider] - Follow up/PCP as directed
[2021-11-14 18:13] LABS: Hematocrit 30.1 % (42-50); Hemoglobin 9.7 gm/dl (12.5-18.0); Mean Cell Volume 89.9 fl (78-100); Mean Corpuscular Hgb Concent. 32.2 g/dl (32-36); Mean Platelet Volume 10.8 fl (7.5-11.0); Platelet Count 261 K/mm3 (150-450); Red Blood Count 3.35 M/mm3 (4.1-5.6); Red Cell Distribution Width 14.9 % (11.5-14.0)
[2021-11-14 18:21] LABS: Appearance CLEAR (CLEAR); Bilirubin NEGATIVE (NEGATIVE); Blood NEGATIVE Ery/ul (0-5); Glucose 150 mg/dL (NEGATIVE); Ketones NEGATIVE (NEGATIVE); Leukocyte Esterase NEGATIVE (NEGATIVE); Nitrite NEGATIVE (NEGATIVE); Protein,Urine Dip NEGATIVE (Negative); RBC 0-2 /HPF (0-2); Sperm PRESENT /HPF (NEGATIVE); Urobilinogen NEGATIVE mg/dL (0-1); WBC 0-2 /HPF (0-5)
[2021-11-14 18:23] LABS: ETHYL ALCOHOL < 10 mg/dL (0-10); Glucose 106 mg/dL (74-106)
[2021-11-14 18:25] LABS: PTT 37.5 SECONDS (25.1-36.5)
[2021-11-14 18:26] LABS: Bacteria NONE SEEN /HPF (NEGATIVE)
[2021-11-14 18:32] LABS: Amphetamine,Urine NEGATIVE (NEGATIVE); Barbiturate,Urine NEGATIVE (NEGATIVE); Benzodiazepine,Urine NEGATIVE (NEGATIVE); Cocaine,Urine NEGATIVE (NEGATIVE); Methadone,Urine NEGATIVE (NEGATIVE); Opiate,Urine NEGATIVE (NEGATIVE); PCP,Urine NEGATIVE (NEGATIVE); THC,Urine NEGATIVE (NEGATIVE)
[2021-11-14] MEDS ORDERED: SODIUM BICARBONATE 50 MEQ/50 ML ABBOJECT IV ONE ×2 (18:36→18:59)
[2021-11-14] MEDS ORDERED: D50W 50 ml Abboject IV ONE ×2 (18:36→18:59)
[2021-11-14] MEDS ORDERED: HUMULIN R IV ONE (18:36)
[2021-11-14] MEDS ORDERED: Calcium Gluconate 10% 1000 MG IV ONE ×2 (18:36→18:57)
[2021-11-14 18:37] LABS: MAGNESIUM 1.6 mg/dL (1.6-2.3)
[2021-11-14] MEDS ORDERED: Sodium Chloride 0.9% 1000 ML 1,000 ML ONE ×2 (18:37→20:52)
--- NOTE | 2021-11-14 18:44 | XRAY ---
Indication: Stroke. Multiple contiguous axial images obtained through the head without contrast. Comparison: April 06, 2016. Age-appropriate global atrophy and mild periventricular degenerative micro-ischemia bilaterally. New finding for small 1 cm old infarcts in the mid periventricular white matter bilaterally. No acute intracranial hemorrhage, abnormal extra-axial fluid collection, or mass effect. Fourth ventricle is midline without hydrocephalus. Bony calvarium intact. Visualized paranasal sinuses and mastoid air cells are clear. Impression: Atrophy, degenerative micro-ischemia, and small old bilateral cerebral infarcts. No acute intracranial abnormalities. Follow-up CT or MRI may yield further information if there remains further clinical concern.
--- NOTE | 2021-11-14 18:46 | XRAY ---
Indication: Stroke. Comparison: June 12, 2016. Portable chest remains slightly underinflated and clear with a few incidental calcified granulomas. Heart not enlarged. Bony thorax intact. No new/acute findings.
[2021-11-14] MEDS ORDERED: HUMULIN R ONE (18:59)
[2021-11-14 19:35] LABS: ALBUMIN 3.7 g/dL (3.5-5.0); ALKALINE PHOSPHATASE 112 U/L (38-126); CHLORIDE 111 mmol/L (98-107); Calcium 7.4 mg/dL (8.4-10.2); Glucose 105 mg/dL (74-106); SGOT/AST 35 U/L (17-59); SGPT/ALT 19 U/L (0-50); SODIUM 142 mmol/L (137-145); Total Protein 6.3 g/dL (6.3-8.2)
[2021-11-14 20:26] LABS: BAND 1 % (0.0-2.0); Lymphocytes 6 % (24-44); Monocyte 5 % (0.0-12.0); Neutrophils 88 % (36.-66.); Platelet Estimate NORMAL (NORMAL); Total Cells Counted 100
[2021-11-14 20:27] LABS: Microcytosis 1+
[2021-11-14 20:34] LABS: BLOOD UREA NITROGEN 273 mg/dL (9-20); EST GLOMERULAR FILTRATION RATE 1.7 ML/MIN
[2021-11-14 20:36] LABS: Potassium 8.1 mmol/L (3.5-5.1)
[2021-11-14 20:37] LABS: Carbon Dioxide < 5 mmol/L (22-30)
[2021-11-14 20:49] VITALS: PULSE 91; O2SAT 98
[2021-11-14] MEDS ORDERED: VELTASSA PO ONE (20:50)
[2021-11-14 20:51] LABS: A-aADO2 67; ABG HEMOGLOBIN 9.2; ARTERIAL BLD GAS O2 SATURATION 98.6 % (95-100); ARTERIAL BLOOD GAS BASE EXCESS -22.9 (-2.0-2.0); ARTERIAL BLOOD GAS FIO2 32 %; ARTERIAL BLOOD GAS PO2 137 mmHg (75-100); CARBOXYHEMOGLOBIN 0.5 % THgb (0.0-6.9); HCO3- 5.5 (22-28); HGB O2 SAT 97.9 g/dF (94-100); Methhemoglobin 0.2 % (1.4-1.5)
[2021-11-14 20:52] LABS: ARTERIAL BLOOD GAS PCO2 19 mmHg (35-45); ARTERIAL BLOOD GAS pH 7.07 (7.35-7.45)
[2021-11-14 20:53] LABS: ABG POTASSIUM 6.3 (3.5-5.1); ABG SITE LEFT BRACHIAL
[2021-11-14] MEDS ORDERED: VELTASSA PO STA (20:53)
[2021-11-14] MEDS ORDERED: Sodium Chloride 3 ML UD NEBULES IH ONE (21:04)
[2021-11-14] MEDS ORDERED: PROVENTIL 2.5 MG/3 ML NEB IH ONE ×2 (21:04→21:16)
[2021-11-14 21:12] VITALS: BP 90/61
== END 2021-11-14 21:25 | disposition short-term general hospital (02) ==
LOC: ED 16:58
DX: N17.9 Acute kidney failure, unspecified (principal); E87.5 Hyperkalemia; M62.82 Rhabdomyolysis; R77.8 Other specified abnormalities of plasma proteins; R79.1 Abnormal coagulation profile; R74.8 Abnormal levels of other serum enzymes; D64.9 Anemia, unspecified; Z79.4 Long term (current) use of insulin; I10 Essential (primary) hypertension; E11.10 Type 2 diabetes mellitus with ketoacidosis without coma; Z79.899 Other long term (current) drug therapy
CPT/HCPCS: 36415; 36600; 51702; 70450; 71045; 80053; 80307; 81001; 82140; 82150; 82375; 82550; 82803; 82947; 83605; 83690; 83735; 83880; 84484; 85025; 85379; 85730; 87040; 87086; 93005; 93041; 94640; 96360; 96374; 99285; 99291; G0480; J0610; J1815; J7609; A9270-GY